=== PATIENT | male | born 2000 | race Caucasian/White ===

== ENCOUNTER 2020-03-15 15:21 | Emergency (ER) | payer MEDICAID, SELFPAY ==
[2020-03-15 16:11] VITALS: BP 119/68; PULSE 96; RESP 18; TEMP 36.4; O2SAT 98; BMI 41.5
--- NOTE | 2020-03-15 16:32 | ED.EXTPRO ---
HPI - Extremity Problem General Chief complaint: Extremity Injury, Upper Stated complaint: SHOULDER PAIN Time Seen by Provider: 03/15/20 16:13 Source: patient Mode of arrival: ambulatory Limitations: no limitations History of Present Illness HPI Narrative: left shoulder painx months, no injury or trauma. MD Complaint: extremity pain Onset (ago): month(s) Pain Consistency: constant Location: left Quality: sharp and constant Radiation: none Relieving factors: nothing Exacerbating factors: range of motion Associated symptoms: denies other symptoms Related Data Allergies Allergy/AdvReac Type Severity Reaction Status Date / Time amoxicillin Allergy Rash Verified 03/15/20 15:34 pseudoephedrine AdvReac Unknown [facility] 03/15/20 15:[facility] Review of Systems Review of Systems: Yes all other systems are reviewed and are negative Constitutional: Constitutional: Reports no additional constitutional complaints, Denies body ache(s), Denies chills, Denies fever(s), Denies headache(s) and Denies weakness Eyes: Eyes: Reports no additional eye complaints and Denies change in vision ENT: Reports system reviewed and no additional complaints, except as documented, Denies dizziness, Denies headache(s), Denies nasal congestion, Denies nasal discharge and Denies neck pain Cardiovascular: Cardiovascular: Reports no additional cardiovascular complaints, Denies chest pain, Denies leg edema and Denies dyspnea Respiratory: Respiratory: Reports no additional respiratory complaints, Denies cough and Denies dyspnea Gastrointestinal: Gastrointestinal: Reports no additional gastrointestinal complaints, Denies abdominal pain, Denies diarrhea, Denies nausea and Denies vomiting Genitourinary: Genitourinary: Denies urinary incontinence Musculoskeletal: Musculoskeletal: Reports no additional musculoskeletal complaints, Denies back pain, Reports arthralgias, Denies joint swelling, Denies neck pain, Denies numbness and Denies tingling Integumentary/Breasts: Skin/Breast: Reports system reviewed and no additional complaints, except as docu and Denies rash Neurologic: Reports system reviewed and no additional complaints, except as documented, Denies Abnormal speech present, Denies dizziness, Denies headache(s), Denies numbness, Denies tingling and Denies weakness PMFSH Past Medical History Attestation statement: The following information was validated with the patient. Source: obtained from family and nursing notes reviewed Social History Social History Alcohol intake: never Smoked in Last 30 Days: No Use of substances other than those prescribed or required for medical reasons: No Advance Directives: No Advance Directives Information Provided: Yes Physical Exam Vital Signs and I&O and Narrative: Vital Signs and I&O: Vital Signs Temp 97.6 F 03/15/20 16:11 Pulse 96 03/15/20 16:11 Resp 18 03/15/20 16:11 BP 119/68 03/15/20 16:11 Pulse Ox 98 03/15/20 16:11 Intake & Output 03/14/20 03/15/20 03/15/20 18:59 06:59 18:59 Weight 155 kg Body Mass Index 41.5 Const: General: cooperative, healthy appearing, comfortable and no acute distress Orientation/consciousness: patient oriented x3 Limitations: no limitations HENMT: Head: Yes normal to inspection Ears: hearing grossly normal bilaterally General nose exam: Normal external nose present Face and sinus: Yes normal facial exam Mouth: Normal oral and palatal mucosa present Throat: Yes posterior oropharynx normal Eyes: General: appearance normal, both eyes and all related structures Pupils: Equal, round and reactive pupils present Neck: Neck: Yes normal visual inspection Chest: Chest palpation & inspection: normal inspection of the chest Resp: Effort & Inspection: normal respiratory effort Auscultation: clear to auscultation bilaterally Cardio: Rate: regular rate Rhythm: regular rhythm Peripheral pulses: Peripheral pulses 2+ throughout GI: Inspection: Yes normal to inspection Palpation (GI): Soft to palpation and nontender Auscultation: normal bowel sounds Back/Spine/Pelvis: Thoracic/Lumbar Spine: thoracic and lumbar spine normal to inspection Skin: General skin exam: no rashes or lesions noted Neuro: General: patient oriented x3, no focal motor deficits and normal sensation to monofilament Cranial nerves: Yes Equal, round and reactive pupils present Cognition (Neuro): normal cognition Speech: No Abnormal speech present Gait exam (Neuro): Normal gait present Motor exam (neuro): 5/5 motor strength present throughout Extrem: Other: Tenderness to the posterior left shoulder. Full range of motion. No erythema, warmth. General: Yes normal to inspection MDM - Extremity (Nontraumatic) MDM Narrative Medical decision making narrative: Left shoulder pain times several months with no clear injury or trauma. No deformity or bony abnormality noted. Full range of motion. May be muscle strain. reviewed worrisome signs and symptoms of when to return to the emergency department. Comfortable discharge home. Discharge Plan Discharge Clinical Impression: Sprain of left shoulder Qualifiers: Encounter type: initial encounter Patient Disposition: Home, Self-Care Instructions: Shoulder Sprain (ED) Additional Instructions: Take motrin or aleve consistently Heat to the area See stretching activities See PCP list
== END 2020-03-15 17:05 | disposition home or self-care (01) ==
PROVIDERS: Emergency Provider Emergency Medicine
DX: S43.402A Unspecified sprain of left shoulder joint, initial encounter (principal); M25.512 Pain in left shoulder; Y93.9 Activity, unspecified; X58.XXXA Exposure to other specified factors, initial encounter; Y92.9 Unspecified place or not applicable; Y99.9 Unspecified external cause status
CPT/HCPCS: 99283; 99284

== ENCOUNTER 2020-06-22 18:50 | Outpatient (REF) | payer MEDICAID, SELFPAY ==
--- NOTE | 2020-06-22 18:51 | MR_ITS ---
EXAMINATION: MR CERVICAL SPINE WITHOUT CONTRAST CLINICAL INFORMATION: 20-year-old with neck strain and cervical radicular symptoms. COMPARISON: None TECHNIQUE: MRI of the cervical spine was obtained using routine sequences without contrast. FINDINGS: Alignment: Normal. Craniocervical Junction/C1-C2 Articulations:?Intact and aligned. Visualized Intracranial Structures: Within normal limits. Vertebral Bodies: Normal height. Bone Marrow: Within normal limits. C2-C3: No disc herniation or spondylosis. Minor facet arthropathy on the left with no significant canal or neural foraminal stenosis. C3-C4: Normal disc space height. No disc herniation or spondylosis. Mild bilateral facet arthropathy is noted with mild bilateral neural foraminal stenosis. C4-C5: Normal disc space height is noted without spondylosis or disc herniation. Mild uncovertebral spurring noted on the right with no significant canal or neural foraminal stenosis. C5-C6: Disc space height is well maintained without disc herniation or spondylosis. Mild facet hypertrophic change on the right without significant canal or neural foraminal stenosis. C6-C7: Normal disc space height. No significant spondylosis. Mild uncovertebral disc-osteophyte complex noted bilaterally with mild bilateral neural foraminal narrowing without significant canal stenosis. C7-T1: Normal disc space height without spondylosis or disc herniation and [id number] facet arthrosis, left more than right, with no significant canal or neural foraminal stenosis. There is a tiny central syrinx noted at the C7 level, which is likely a benign finding of indeterminate etiology and clinical significance. MR/MR cervical spine wo con IMPRESSION: 1. No disc herniations, spinal cord impingement or significant spinal canal stenosis. 2. Mild degrees of uncovertebral disc-osteophyte complex bilaterally at C6-C7 with mild bilateral neural foraminal narrowing without neural impingement. 3. Mild bilateral facet arthrosis at C3-C4 with mild bilateral neural foraminal narrowing without neural impingement. 4. Tiny central syrinx noted at C7 of indeterminate etiology, but likely a benign finding of indeterminate clinical significance.
== END 2020-06-22 18:51 | disposition home or self-care (01) ==
LOC: HO.MRI 18:50
PROVIDERS: Visit Provider Nurse Practitioner Women's Health
DX: M54.12 Radiculopathy, cervical region (principal)
CPT/HCPCS: 72141

== ENCOUNTER 2021-07-05 17:10 | Emergency (ER) | payer MEDICAID, SELFPAY ==
--- NOTE | ~2021-07-05 | US_ITS ---
EXAMINATION: US SCROTUM CLINICAL INFORMATION: Left testicular pain. COMPARISON: None TECHNIQUE: A sonogram of the scrotum was performed assessing donahue-scale appearance and color Doppler flow. Spectral Doppler analysis of the arterial and venous flow were performed in the testes bilaterally. FINDINGS: RIGHT: Right testicle measures 5.0 x 2.9 x 3.4 cm, volume 23.8 mL. No focal testicular parenchymal lesions are visualized. Spectral Doppler analysis of the arterial and venous flow is normal in the right testis. Right epididymal head is normal in size. No right hydrocele or varicocele is seen. Right epididymal Doppler flow is normal. LEFT: Left testicle measures 4.8 x 2.4 x 2.7 cm, volume 16.4 mL. No focal testicular parenchymal lesions are visualized. Spectral Doppler analysis of the arterial and venous flow is normal in the left testis. Left epididymal head is normal in size. No left hydrocele or varicocele is seen. Left epididymal Doppler flow is normal. US/US scrotum doppler IMPRESSION: Negative exam.
--- NOTE | ~2021-07-05 | US_ITS ---
EXAMINATION: US SCROTUM CLINICAL INFORMATION: Left testicular pain. COMPARISON: None TECHNIQUE: A sonogram of the scrotum was performed assessing donahue-scale appearance and color Doppler flow. Spectral Doppler analysis of the arterial and venous flow were performed in the testes bilaterally. FINDINGS: RIGHT: Right testicle measures 5.0 x 2.9 x 3.4 cm, volume 23.8 mL. No focal testicular parenchymal lesions are visualized. Spectral Doppler analysis of the arterial and venous flow is normal in the right testis. Right epididymal head is normal in size. No right hydrocele or varicocele is seen. Right epididymal Doppler flow is normal. LEFT: Left testicle measures 4.8 x 2.4 x 2.7 cm, volume 16.4 mL. No focal testicular parenchymal lesions are visualized. Spectral Doppler analysis of the arterial and venous flow is normal in the left testis. Left epididymal head is normal in size. No left hydrocele or varicocele is seen. Left epididymal Doppler flow is normal. US/US scrotum doppler IMPRESSION: Negative exam.
[2021-07-05 17:54] VITALS: BP 124/65; PULSE 75; RESP 18; O2SAT 100; BMI 19.3
--- NOTE | 2021-07-05 18:46 | ED_ITS ---
HPI - Male Genitourinary General Chief complaint: Urogenital-Male Stated complaint: swelling around groin area Time Seen by Provider: 07/05/21 17:46 Source: patient Mode of arrival: ambulatory Limitations: no limitations History of Present Illness HPI Narrative: 21-year-old male past medical history significant for testicular torsion presents to the emergency department with pain to the left groin area and pain t o the left testicle x5 days. Patient tells me that this is a dull, aching pain he rates the pain at 5/10 in tells me that the discomfort is an 8/10. He tells me that this felt like when he had torsion back in 2013. He tells me he had surgery back then so he was nervous that this may be the same thing. He also reports swelling and pain to the left testicle. He is unable to identify what makes the pain better or worse. He is currently sexually active with both men and women, he has low concern for STDs. He denies difficulty with urination, blood with urination, nausea, vomiting, anorexia, penile discharge, trauma to the area, fevers, chills, shortness of breath, abdominal pain. MD Complaint: testicle pain and testicle swelling Onset (ago): day(s) (5) Duration: constant Location: left testicle Severity: moderate Severity scale (1-10): 5 Quality: aching and dull Relieving factors: none Exacerbating factors: none Associated symptoms: Reports swelling Related Data Previous Rx's Medication Instructions Recorded doxycycline hyclate 100 mg capsule 100 mg PO BID 10 Days #20 cap 07/05/21 metronidazole 500 mg tablet 500 mg PO BID 7 Days #14 tab 07/05/21 Allergies Allergy/AdvReac Type Severity Reaction Status Date / Time amoxicillin Allergy Rash Verified 03/15/20 15:34 pseudoephedrine AdvReac Unknown Verified 03/15/20 15:34 [From [facility]] Review of Systems Verdana 4l Review of Systems: Verdana 4d Verdana 4d Constitutional : No Weight loss, No Fever, No Chills, No Fatigue, No Malaise ENT/Mouth : No sore throat, No Rhinorrhea Eyes: No Eye Pain, No Swelling, No Redness Cardiovascular : No Chest Pain, No SOB, No Dyspnea on Exertion, No OrthopneaOrthopnea, No Edema, No Palpitations Respiratory : No Cough, No Sputum, No Wheezing Gastrointestinal : No Nausea, No Vomiting, No Diarrhea, No Constipation, No abdominal Pain, No Hematochezia, No Melena Genitourinary : No Dysuria, No Urinary Frequency, No Hematuria, +left testicular pain Musculoskeletal : No joint pain, No Myalgias, No Joint Swelling Skin : No Skin Lesions, No rash Neuro : No Weakness, No Numbness, No Dizziness, No Headache All other systems reviewed and are negative Yes all other systems are reviewed and are negative [facility] Past Medical History Attestation statement: The following information was validated with the patient. Source: old records reviewed and nursing notes reviewed Social History Social History Alcohol intake: never Advance Directives: No Advance Directives Information Provided: No Physical Exam Verdana 4l Vital Signs: Verdana 4d Verdana 4d Vital Signs: Verdana 4d Verdana 4Bd Last Vital Signs Verdana 4d [employer] New 4d [employer] New 4d Pulse 75 07/05/21 17:54 [employer] New 4d Resp 18 07/05/21 17:54 [employer] New 4d BP 124/65 07/05/21 17:54 Pulse Ox 100 07/05/21 17:54 BMI result Body Mass Index 19.3 vss Appearance: Alert.? Oriented X3.? No acute distress.? Head: Normocephalic, atraumatic, no step-offs or deformities Eyes: Pupils equal, round and reactive to light.? ENT: Pharynx normal.? Neck: Normal inspection.? Neck supple.? CVS: Normal heart rate and rhythm.? Pulses normal.? Respiratory: No respiratory distress.? Breath sounds normal.? Abdomen: Soft and nontender.? Skin: Skin warm and dry.? Normal skin color.? Normal skin turgor.? Sensative: Chaperoned by Brandy, pain with palpation to left epididymis, right without pain. Overlying erythema and warmth to the left scrotum, right side appears normal. No evident hydroceles bilaterally. No penile discharge. Circumcised normal external male genitalia. Extremities: No lower extremity edema.? No calf ttp. 5/5 strength to bilateral upper and lower extremities Back: No midline tenderness, no C-spine tenderness, full range of motion, no CVA tenderness bilaterally Neuro: Oriented X 3.? No motor deficit.? No sensory deficit. Course Reevaluation(s) Reevaluation #1: A sensitive exam was done chaperoned by Brandy, pain with palpation to left epididymis, right without pain. Overlying erythema and warmth to the left scrotum, right side appears normal. No evident hydroceles bilaterally. No p enile discharge. Circumcised normal external male genitalia. Consistent with epididymitis. Will prophylactically treat for gonorrhea, chlamydia and Trichomonas. US pending Time: 19:24 Reevaluation #2: Ultrasound of scrotum normal no signs of testicular torsion. Flow to bilateral testicles. At this time will discharge patient home with treatment for epididymitis. I advised him to return new or worsening symptoms. I have sent antibiotics to his pharmacy. I have also given him urology information for follow-up if needed. I have advised him to get full panel STD testing at a place like [facility]. Advised him to practice safe sex until he receives results for gonorrhea and chlamydia test. Patient understands plan, educated on plan has no further questions. I feel comfortable discharging home. Time: 19:43 MDM - Male Genitourinary MDM Narrative Medical decision making narrative: 1854 21 yo male hx of testicular torsion ( in 2013 w/ surgery afterwards) presents to the emergency department with complaints of 5 days of progressively worsening groin/left testicular pain described as dull, aching, 5/10. Sexually active with men and women, no concerns for STDs per patient. Physical examination significant for Plan at this time is basic labs, ultrasound to rule out torsion, UA, chlamydia, gonorrhea. Medical Records Attestation: I reviewed the patient's medical records. Lab Data Attestation: I reviewed the patient's lab results. Critical Care Time Critical Care Time Critical Care Time: No Discharge Plan Discharge Clinical Impression: Epididymitis Patient Disposition: Home, Self-Care Instructions: Epididymitis (ED) Additional Instructions: Take your medications as prescribed. If you were prescribed antibiotics today, it is important that you take your medication to their entirety, do not skip any doses, do not finish them early. Follow-up with your primary care provider this week. Return to the emergency department with new or worsening symptoms. Such as fevers, chills, abdominal pain, nausea, vomiting, chest pain, shortness of breath, testicular pain that is worsening or not improving, discharge from penis. In case of emergency call 911 Test for gonorrhea and chlamydia pending at this time. It is a good idea free to follow-up with [facility] or your PCP for full panel STD testing. Until you receive your STD test results I advised to practice safe sex, wear protection. Prescriptions: New doxycycline hyclate 100 mg capsule 100 mg PO BID 10 Days Qty: 20 0RF metronidazole 500 mg tablet 500 mg PO BID 7 Days Qty: 14 0RF Referrals: Venus Shaikh PA [Primary Care Provider] - 2 days Stand Alone Forms: Work/School Release
[2021-07-05] MEDS: metroNIDAZOLE 500 MG TABLET PO (20:43)
[2021-07-05] MEDS: diphenhydrAMINE HCL 25 MG TABLET 50 MG PO (20:43)
[2021-07-05] MEDS: cefTRIAXone sodium 500 MG, Lidocaine HCl 1 % MPF 1 ML IM (20:44)
[2021-07-05 20:57] LABS: Appearance Urine HAZY; Color Urine YELLOW; Glucose Urine UA NEG (NEG); Leukocyte Esterase Urine NEG (NEG); Nitrite Urine NEG (NEG); Specific Gravity - Urine 1.015 (1.005-1.025); Urine Blood NEG (NEG); Urine Ketones NEG (NEG); Urine Protein NEG (NEG-TRACE)
[2021-07-05 21:02] LABS: Bacteria Urine 2+ /LPF; RBC Urine 0 /HPF (0); WBC Urine 0 /HPF (0-4)
[2021-07-06 02:10] LABS: CT PCR NOT DETECTED (Not Detect.); NG PCR NOT DETECTED (Not Detect.)
== END 2021-07-05 21:18 | disposition home or self-care (01) ==
PROVIDERS: Physician Assistant; Emergency Provider Emergency Medicine; PCP Physician Assistant
DX: N45.1 Epididymitis (principal); R10.32 Left lower quadrant pain; N50.812 Left testicular pain
CPT/HCPCS: 81001; 87491; 87591; 93975; 96372; 99284; J0696; Q0163